=== PATIENT | female | born 1995 | race African-American/Black ===

== ENCOUNTER 2017-01-18 09:02 | Emergency (ER) | payer OTHER ==
[~2017-01-18 09:02] MED LIST: ERYT1OIN6 EACHEYE; HYDR-971 PO; NAPR500T4 PO; PNV1TABL25 PO
[2017-01-18 09:05] VITALS: BP 131/75
[2017-01-18] MEDS ORDERED: AMOX1TAB61 PO (09:41)
--- NOTE | 2017-01-18 09:41 | PHYS DOC ---
Past Medical History Past Medical History: No Pertinent History Past Surgical History: No Surgical History Alcohol Use: None Drug Use: Marijuana Adult General Chief Complaint Chief Complaint: SORE THROAT HPI HPI Patient is a 21 year old female presents to the emergency department stating that she has had a cough congestion with sinus pressure for the last week. She does states that she had recent travel out the [facility] for a . Patient states she has not taken anything ptow-kbw-arhogkc for the discomfort. She does state that she has sinus pressure cough congestion with a sore throat. Denies any fever, chills or any nausea or vomiting. Review of Systems Review of Systems Constitutional: Denies fever or chills [] Eyes: Denies change in visual acuity, redness, or eye pain [] HENT: nasal congestion denies sore throat [] Respiratory: cough denies shortness of breath [] Cardiovascular: No additional information not addressed in HPI [] GI: Denies abdominal pain, nausea, vomiting, bloody stools or diarrhea [] : Denies dysuria or hematuria [] Musculoskeletal: Denies back pain or joint pain [] Integument: Denies rash or skin lesions [] Neurologic: frontal headache, denies focal weakness or sensory changes [] Endocrine: Denies polyuria or polydipsia [] Allergies Allergies Allergies Coded Allergies Type Severity Reaction Last Updated Verified No Known Drug Allergies 12/26/15 No Physical Exam Physical Exam Constitutional: Well developed, well nourished, no acute distress, non-toxic appearance. [] HENT: Normocephalic, atraumatic, bilateral external ears normal, oropharynx moist, no oral exudates, nose normal. Bilateral TM normal, Throat with post nasal drip noted. Slight redness noted, no exudate noted. Patient with frontal sinus tenderness noted. Eyes: PERRLA, EOMI, conjunctiva normal, no discharge. [] Neck: Normal range of motion, no tenderness, supple, no stridor. [] Cardiovascular:Heart rate regular rhythm, no murmur [] Lungs & Thorax: Bilateral breath sounds clear to auscultation [] Skin: Warm, dry, no erythema, no rash. [] Extremities: No tenderness, no cyanosis, no clubbing, ROM intact, no edema. [] Neurologic: Alert and oriented X 3, normal motor function, normal sensory function, no focal deficits noted. [] Psychologic: Affect normal, judgement normal, mood normal. [] EKG EKG [] Radiology/Procedures Radiology/Procedures [] Course & Med Decision Making Course & Med Decision Making Pertinent Labs and Imaging studies reviewed. (See chart for details) Patient was instructed to take sudafed and mucinex as directed by manufacture Medication as prescribed Drink plenty of fluids such as water and gatorade Followup with primary care provider as needed in 5-7 days Return to emergency department as needed for signs and symptoms that become worse. [] Dragon Disclaimer Dragon Disclaimer This electronic medical record was generated, in whole or in part, using a voice recognition dictation system. Departure Departure Impression: Primary Impression: Sinusitis Disposition: HOME, SELF-CARE Condition: STABLE Referrals: JIMBO HARDY Jr, MD (PCP) Patient Instructions: Sinusitis, Pybp-cn-Ahgd Additional Instructions: Activity as tolerated Medication as directed Sudafed and mucinex DM as directed by manufacture over the counter Drink plenty of fluids such as water, gatorade, or propel Followup with primary care provider in 5-7 days Return to emergency department as needed for signs and symptoms that become worse. Scripts Amoxicillin/Potassium Clav (AUGMENTIN 875-125 TABLET) 1 Each Tablet 1 TAB PO BID, #20 TAB Prov: MELI MAYNARD APRN 01/18/17 Problem Qualifiers Primary Impression: Sinusitis Sinusitis location: unspecified location Chronicity: unspecified Qualified Codes: J32.9 - Chronic sinusitis, unspecified MELI MAYNARD APRN Jan 18, 2017 09:41
== END 2017-01-18 10:02 | disposition home or self-care (01) ==
LOC: ER 09:02
DX: J32.9 Chronic sinusitis, unspecified (principal)
CPT/HCPCS: 99283

== ENCOUNTER 2017-01-26 10:45 | Emergency (ER) | payer OTHER ==
[~2017-01-26] VITALS: Ht 157.5 cm; Wt 51.7 kg
[~2017-01-26 10:45] MED LIST changes: +AMOX1TAB61 PO
[2017-01-26 11:00] VITALS: BP 120/58
[2017-01-26] MEDS ORDERED: AMOX600S19 PO (11:08)
--- NOTE | 2017-01-26 11:09 | PHYS DOC ---
Past Medical History Past Medical History: No Pertinent History Past Surgical History: No Surgical History Alcohol Use: None Drug Use: None Adult General Chief Complaint Chief Complaint: SORE THROAT HPI HPI Patient is a 21 year old female who presents complaining of a sinus infection and sore throat. Patient states she was seen in the ED on January 18, 2017 and was diagnosed with a sinusitis. She states she was discharged with Augmentin but she does not like the medication because it is pills She only took one tablet yesterday. She would like her medications switched to liquid. Review of Systems Review of Systems Constitutional: Denies fever or chills [] Eyes: Denies change in visual acuity, redness, or eye pain [] HENT: Sore throat and nasal congestion Respiratory: Denies cough or shortness of breath [] Cardiovascular: No additional information not addressed in HPI [] GI: Denies abdominal pain, nausea, vomiting, bloody stools or diarrhea [] : Denies dysuria or hematuria [] Musculoskeletal: Denies back pain or joint pain [] Integument: Denies rash or skin lesions [] Neurologic: Denies headache, focal weakness or sensory changes [] Allergies Allergies Allergies Coded Allergies Type Severity Reaction Last Updated Verified No Known Drug Allergies 12/26/15 No Physical Exam Physical Exam Constitutional: Well developed, well nourished, no acute distress, non-toxic appearance. [] HENT: Normocephalic, atraumatic, bilateral external ears normal, oropharynx moist, no oral exudates, Small amount of clear rhinorrhea noted in bilateral nasal cavities. Eyes: PERRLA, EOMI, conjunctiva normal, no discharge. [] Neck: Normal range of motion, no tenderness, supple, no stridor. [] Cardiovascular:Heart rate regular rhythm, no murmur [] Lungs & Thorax: Bilateral breath sounds clear to auscultation [] Abdomen: Bowel sounds normal, soft, no tenderness, no masses, no pulsatile masses. [] Skin: Warm, dry, no erythema, no rash. [] Back: No tenderness, no CVA tenderness. [] Extremities: No tenderness, no cyanosis, no clubbing, ROM intact, no edema. [] Neurologic: Alert and oriented X 3, normal motor function, normal sensory function, no focal deficits noted. [] Psychologic: Affect normal, judgement normal, mood normal. [] EKG EKG [] Radiology/Procedures Radiology/Procedures [] Course & Med Decision Making Course & Med Decision Making Pertinent Labs and Imaging studies reviewed. (See chart for details) Patient is in the ED requesting antibiotics to be switched from Augmentin pills to Augmentin liquid. She was given prescription on January 18, 2017 for acute sinusitis. She has only taken one tablet yesterday since the prescription was given to her. I switched her to liquid Augmentin. I recommended she also takes dpgt-cty-ncpiudx decongestant like Claritin-D or Zyrtec-D. Encouraged her to establish care with a PCP. Dragon Disclaimer Dragon Disclaimer This electronic medical record was generated, in whole or in part, using a voice recognition dictation system. Departure Departure Impression: Primary Impression: Acute sinusitis Additional Impression: Acute pharyngitis Disposition: 01 HOME, SELF-CARE Condition: STABLE Referrals: JIMBO HARDY Jr, MD (PCP) follow up with a primary care doctor in one week Patient Instructions: Sinusitis, Viral and Bacterial Pharyngitis Additional Instructions: We switched your prescription from Augmentin pills to liquid. Please ensure you complete this antibiotics. Please take xgps-juk-adjtdue decongestant like Claritin-D or Zyrtec-D. Please push fluids. Please establish care with a primary care doctor and follow-up in one week. Scripts Amoxicillin/Potassium Clav (AUGMENTIN ES-600 SUSPENSION) 600 Mg/5 Ml Susp.recon 12 ML PO BID, #240 ML Prov: MAURY ARAIZA APRN 01/26/17 Problem Qualifiers Primary Impression: Acute sinusitis Sinusitis location: other Recurrence: not specified as recurrent Qualified Codes: J01.80 - Other acute sinusitis Additional Impression: Acute pharyngitis Pharyngitis/tonsillitis etiology: unspecified etiology Qualified Codes: J02.9 - Acute pharyngitis, unspecified MAURY ARAIZA LITIGATION ASSISTANT Jan 26, 2017 11:09
== END 2017-01-26 11:18 | disposition home or self-care (01) ==
LOC: ER 10:45
DX: J01.90 Acute sinusitis, unspecified (principal); J02.9 Acute pharyngitis, unspecified
CPT/HCPCS: 99283

== ENCOUNTER 2017-03-06 19:27 | Emergency (ER) | payer OTHER ==
[~2017-03-06] VITALS: Ht 157.5 cm; Wt 51.7 kg
[~2017-03-06 19:27] MED LIST changes: +AMOX600S19 PO
[2017-03-06 19:44] VITALS: BP 126/62
[2017-03-06] MEDS ORDERED: CETI10TA22 PO (21:17)
[2017-03-06] MEDS ORDERED: TRIA15OI TP (21:17)
--- NOTE | 2017-03-06 21:17 | PHYS DOC ---
Past Medical History Past Medical History: No Pertinent History Past Surgical History: No Surgical History Alcohol Use: None Drug Use: None Adult General Chief Complaint Chief Complaint: ITCHING HPI HPI Patient is a 21 year old female who presents with a pruritic rash that she noted this morning after camping last night. Review of Systems Review of Systems Constitutional: Denies fever or chills [] Musculoskeletal: Denies back pain or joint pain [] Integument: rash Neurologic: Denies headache, focal weakness or sensory changes [] All other systems were reviewed and found to be within normal limits, except as documented in this note. Allergies Allergies Allergies Coded Allergies Type Severity Reaction Last Updated Verified No Known Drug Allergies 12/26/15 No Physical Exam Physical Exam Constitutional: Well developed, well nourished, no acute distress, non-toxic appearance. [] Skin: Warm, dry, small amount of erythematous fine papular rash on bilateral upper extremities.] Back: No tenderness, no CVA tenderness. [] Extremities: No tenderness, no cyanosis, no clubbing, ROM intact, no edema. [] Neurologic: Alert and oriented X 3, normal motor function, normal sensory function, no focal deficits noted. [] Psychologic: Affect normal, judgement normal, mood normal. [] Current Patient Data Vital Signs Vital Signs Date Time Temp Pulse Resp B/P (MAP) Pulse Ox O2 Delivery O2 Flow Rate FiO2 03/06/17 19:44 97.9 71 16 98 Room Air 97.9 Lab Values Laboratory Tests Test 03/06/17 19:49 POC Urine HCG, Qualitative Hcg negative (Negative) EKG EKG [] Radiology/Procedures Radiology/Procedures [] Course & Med Decision Making Course & Med Decision Making Pertinent Labs and Imaging studies reviewed. (See chart for details) Patient has contact dermatitis rash from unknown cause. Discharged with triamcinolone cream and Zyrtec. She requested a test which was negative. Follow-up with her PCP in 1-2 weeks. Dragon Disclaimer Dragon Disclaimer This electronic medical record was generated, in whole or in part, using a voice recognition dictation system. Departure Departure Impression: Primary Impression: Contact dermatitis Disposition: HOME, SELF-CARE Condition: STABLE Referrals: JIMBO HARDY Jr, MD (PCP) follow up with your doctor in one week Patient Instructions: Contact Dermatitis, Lrqd-[id number]-Cqtm Additional Instructions: You seen with contact dermatitis rash from unknown cause. Use the prescribed medicines as ordered. Follow-up with your doctor in 1-2 weeks. Your prepregnancy test was negative. Scripts Cetirizine Hcl (ZYRTEC) 10 Mg Tablet 1 TAB PO DAILY, #30 TAB 2 Refills Prov: MAURY ARAIZA APRN 03/06/17 Triamcinolone Acetonide (TRIAMCINOLONE ACETONIDE 0.1% OINT) 15 Gm Oint...g. 1 LOKI TP BID for WOUND CARE, #1 TUBE Prov: MAURY ARAIZA APRN 03/06/17 Problem Qualifiers Primary Impression: Contact dermatitis Contact dermatitis type: unspecified Contact dermatitis trigger: unspecified trigger Qualified Codes: L25.9 - Unspecified contact dermatitis, unspecified cause MAURY ARAIZA APRN Mar 06, 2017 21:17
== END 2017-03-06 21:21 | disposition home or self-care (01) ==
LOC: ER 19:27
DX: L25.9 Unspecified contact dermatitis, unspecified cause (principal)
CPT/HCPCS: 81025; 99283

== ENCOUNTER 2017-03-25 01:43 | Emergency (ER) | payer OTHER ==
[~2017-03-25] VITALS: Ht 157.5 cm; Wt 52.2 kg
[~2017-03-25 01:43] MED LIST changes: +CETI10TA22 PO; +TRIA15OI TP
--- NOTE | 2017-03-25 01:47 | PHYS DOC ---
Past Medical History Past Medical History: No Pertinent History Past Surgical History: No Surgical History Alcohol Use: None Drug Use: None Adult General Chief Complaint Chief Complaint: VAGINAL BLEEDING HPI HPI Patient is a 21 year old -Japanese female who presents with crampy abdominal pain and vaginal bleeding. She thinks she might be . Her last missed her period was in the vault January. She states that she had sex last night and then today she noticed some bleeding when she used the bathroom. She is also having some crampy pain. She has a fevers chills, dysuria. She states she's O negative and will need RhoGAM if she is . currently. Review of Systems Review of Systems Constitutional: Denies fever or chills [] Eyes: Denies change in visual acuity, redness, or eye pain [] HENT: Denies nasal congestion or sore throat [] Respiratory: Denies cough or shortness of breath [] Cardiovascular: No additional information not addressed in HPI [] GI: Denies abdominal pain, nausea, vomiting, bloody stools or diarrhea [] : Denies dysuria or hematuria [] Musculoskeletal: Denies back pain or joint pain [] Integument: Denies rash or skin lesions [] Neurologic: Denies headache, focal weakness or sensory changes [] Endocrine: Denies polyuria or polydipsia [] All other systems were reviewed and found to be within normal limits, except as documented in this note. Allergies Allergies Allergies Coded Allergies Type Severity Reaction Last Updated Verified No Known Drug Allergies 12/26/15 No Physical Exam Physical Exam Constitutional: Well developed, well nourished, no acute distress, non-toxic appearance. [] HENT: Normocephalic, atraumatic, bilateral external ears normal, oropharynx moist, no oral exudates, nose normal. [] Eyes: PERRLA, EOMI, conjunctiva normal, no discharge. [] Neck: Normal range of motion, no tenderness, supple, no stridor. [] Cardiovascular:Heart rate regular rhythm, no murmur [] Lungs & Thorax: Bilateral breath sounds clear to auscultation [] Abdomen/genital: Bowel sounds normal, soft, no tenderness, no masses, no pulsatile masses. No external genitalia, no tenderness noted, minimal blood noted on speculum exam Skin: Warm, dry, no erythema, no rash. [] Back: No tenderness, no CVA tenderness. [] Extremities: No tenderness, no cyanosis, no clubbing, ROM intact, no edema. [] Neurologic: Alert and oriented X 3, normal motor function, normal sensory function, no focal deficits noted. [] Psychologic: Affect normal, judgement normal, mood normal. [] Current Patient Data Vital Signs Vital Signs Date Time Temp Pulse Resp B/P (MAP) Pulse Ox O2 Delivery O2 Flow Rate FiO2 03/25/17 01:58 97.6 64 16 100 Room Air 97.6 Lab Values Laboratory Tests Test 03/25/17 01:45 03/25/17 02:23 03/25/17 02:28 Urine Collection Type Unknown Urine Color Yellow Urine Clarity Cloudy Urine pH 6.0 Urine Specific [place] 1.020 Urine Protein Negative mg/dL (NEG-TRACE) Urine Glucose (UA) Negative mg/dL (NEG) Urine Ketones (Stick) Negative mg/dL (NEG) Urine Blood Large (NEG) Urine Nitrite Negative (NEG) Urine Bilirubin Negative (NEG) Urine Urobilinogen Dipstick 1.0 mg/dL (0.2 mg/dL) Urine Leukocyte Esterase Negative (NEG) Urine RBC 6-10 /HPF (0-2) Urine WBC 1-4 /HPF (0-4) Urine Squamous Epithelial Cells Many /LPF Urine Bacteria Few /HPF (0-FEW) POC Urine HCG, Qualitative Hcg negative (Negative) Maternal Serum HCG Beta Subunit 1 mIU/mL (0-5) Microbiology 03/25/17 Wet Prep - Final, Complete EKG EKG [] Radiology/Procedures Radiology/Procedures RUN DATE: 03/25/17 PAGE 1 RUN TIME: 0240 [facility] [address] [place] [address] Jason العلي M.D., Animal Killer PATIENT: MARY B[place]HAM ACCT: [id number] LOC: [facility] U : [id number] AGE/SX: 21/F ROOM: REG : 03/25/[address]: SHARON ROSA MD : 1995 BED: DIS : STATUS: DELISA RINCON TLOC: SPEC #: [id number] STEPHAN: 03/25/17 STATUS: COMP REQ #: [id number] RECD: 03/25/[address]: HSARON ROSA MD SOURCE: VAGINAL ENTR: 03/25/[address]: JIMBO GARCIA Jr, MD SPDESC: ORDERED: WET PREP COMMENTS: Has specimen been collected/obtained? Y Procedure Result WET PREP Final YEAST NONE SEEN TRICHOMONAS NONE SEEN CLUE CELLS NONE SEEN SQUAMOUS EPS OCCASIONAL END OF REPORT Impressions: Vaginal bleeding Course & Med Decision Making Course & Med Decision Making Pertinent Labs and Imaging studies reviewed. (See chart for details) G is negative with a beta Quant of 1. She is not . She is being discharged home, she has a follow-up appointment in the morning with Dr. Garcia. Return precautions given. Instructed use Dragon Disclaimer Dragon Disclaimer This electronic medical record was generated, in whole or in part, using a voice recognition dictation system. Departure Departure Impression: Primary Impression: Vaginal bleeding Disposition: HOME, SELF-CARE Condition: STABLE Referrals: JIMBO GARCIA Jr, MD (PCP) Patient Instructions: Dysmenorrhea, Ayyx-ak-Dyqh Additional Instructions: You were seen tonight for vaginal bleeding and cramps. You're not . Your being discharged home. You can use Advil as needed for menstrual cramps. You follow-up appointment in the morning with Dr. Garcia. Return back to ER for severe pain, lightheadedness dizziness or other concerns. SHARON ROSA MD Mar 25, 2017 01:47
[2017-03-25 01:58] VITALS: BP 124/73
[2017-03-25 02:35] LABS: BILIRUBIN,URINE NEGATIVE (NEG); GLUCOSE,URINE NEGATIVE (NEG); NITRITE,URINE NEGATIVE (NEG); PROTEIN,URINE NEGATIVE (NEG-TRACE)
[2017-03-25 02:57] LABS: BACTERIA,URINE FEW /HPF (0-FEW); SQUAMOUS EPITHELIAL CELL,UR MANY /LPF
== END 2017-03-25 03:35 | disposition home or self-care (01) ==
LOC: ER 01:43
DX: N93.9 Abnormal uterine and vaginal bleeding, unspecified (principal); R10.9 Unspecified abdominal pain; R50.9 Fever, unspecified; R30.0 Dysuria
CPT/HCPCS: 81001; 81025; 84702; 87491; 87591; 99284; Q0111

== ENCOUNTER 2017-06-02 17:00 | Emergency (ER) | payer OTHER | END 2017-06-02 18:03 | disposition left against medical advice (07) | LOC: ER 17:00 | DX: N93.9 Abnormal uterine and vaginal bleeding, unspecified (principal); Z53.21 Procedure and treatment not carried out due to patient leaving prior to being seen by health care provider ==

== ENCOUNTER 2017-11-11 15:45 | Emergency (ER) | payer OTHER ==
[2017-11-11] MEDS: ONDANSETRON ODT 4 MG TAB.RAPDIS. PO (16:33)
[2017-11-11 16:35] LABS: URINE HCG POC HCG NEGATIVE (Negative)
[2017-11-11 16:37] LABS: BILIRUBIN,URINE NEGATIVE (NEG); CLARITY,URINE CLOUDY; COLOR,URINE YELLOW; GLUCOSE,URINE NEGATIVE (NEG); NITRITE,URINE NEGATIVE (NEG); PH,URINE 6.5; PROTEIN,URINE NEGATIVE (NEG-TRACE); UROBILINOGEN,URINE 0.2 mg/dL (0.2 mg/dL)
[2017-11-11 16:46] LABS: BACTERIA,URINE FEW /HPF (0-FEW); RBC,URINE OCC /HPF (0-2)
[2017-11-11 16:47] LABS: SQUAMOUS EPITHELIAL CELL,UR MOD /LPF; TRICHOMONAS,URINE PRESENT
[2017-11-11] MEDS: AZITHROMYCIN 250 MG TABLET. PO (16:50)
[2017-11-11] MEDS: cefTRIAXone IM 250 MG VIAL IM (16:51)
[2017-11-12 15:49] LABS: CHLAMYDIA PROBE Negative (Negative); GC PROBE Negative (Negative)
== END 2017-11-11 17:18 | disposition home or self-care (01) ==
LOC: ER 15:45
DX: N76.0 Acute vaginitis (principal); B96.89 Other specified bacterial agents as the cause of diseases classified elsewhere; A64 Unspecified sexually transmitted disease; A59.01 Trichomonal vulvovaginitis
CPT/HCPCS: 81001; 81025; 87086; 87491; 87591; 96372; 99284; J0696; Q0111; Q0144; Q0162

== ENCOUNTER → 2017-12-31 | Day surgery (SDC) | payer OTHER ==
[~2017-12-31] VITALS: Ht 157.5 cm; Wt 53.5 kg
[~2017-12-31] MED LIST changes: +DEXAMETHASONE SOD PHOS 20 MG/5 ML VIAL. ONE; +FERRIC SUBSULFATE 8 ML SOL.W.APPL TP ONE; +HYDROmorphone 2 MG/ML VIAL IV PRN; +IV RINGERS,LACTATED 1000ML 1,000 ML IV SCH; +LIDOCAINE 1% PF 2 ML VIAL. ID PRN; +LIDOCAINE 1%/EPI 1:100,000 20 ML VIAL. ONE; +METR500T PO; +MIDAZOLAM HCL/PF 2 MG/2 ML VIAL. ONE; +MORPHINE SULFATE 2 MG/ML VIAL. IV PRN; +NAPR-514 PO; -NAPR500T4 PO; +ONDANSETRON PF 4 MG/2 ML VIAL. IV PRN; +ONDANSETRON PF 4 MG/2 ML VIAL. ONE; +OXYC-323 PO; +PROCHLORPERAZINE 10 MG/2 ML VIAL. IV PRN; +PROPOFOL 20 ML IV ONE; +SEVOFLURANE 31 TO 60 MINUTES. IH ONE; +fentaNYL PF VIAL 100 MCG/2 ML VIAL IV PRN; +fentaNYL PF VIAL 100 MCG/2 ML VIAL ONE
[2017-12-31 08:54] LABS: U PREG PATIENT NEGATIVE (NEG)
--- NOTE | 2017-12-31 11:38 | PDOC ---
BRIEF OPERATIVE NOTE Date: Dec 31, 2017 Pre-Op Diagnosis cervical dysplasia Post-Op Diagnosis SAme Procedure Performed Cervical Cone Bx Surgeon Dr. Garcia Anesthesia Type: General Blood Loss 10 ml Specimens Obtained cervical cone bx Findings cervical dysplasia Complications none Operative Note see dictation JIMBO GARCIA Jr, MD Dec 31, 2017 11:38
--- NOTE | 2017-12-31 11:39 | DISCH ---
DISCHARGE INSTRUCTIONS Condition on Discharge Condition on Discharge: Stable Activity After Discharge Activity Instructions for Disc: Activity as tolerated Lifting Instructions after Dis: No heavy lifting Driving Instructions after Dis: Do not drive today Diet after Discharge Diet after Discharge: Regular Contacting the DRKelvin after DC Call your doctor for: Concerns you may have Follow-Up Follow up with: Dr. Martinez in 2 wks. JIMBO MARTINEZ Jr, MD Dec 31, 2017 11:39
--- NOTE | 2017-12-31 12:00 | OP ---
DATE OF SURGERY: PREOPERATIVE DIAGNOSIS: Cervical dysplasia. POSTOPERATIVE DIAGNOSIS: Cervical dysplasia. PROCEDURE: Cervical cone biopsy. SURGEON: Jimbo Garcia MD ANESTHESIA: GETA. ESTIMATED BLOOD LOSS: Less than 10 mL. COMPLICATIONS: None. FINDINGS: Cervical dysplasia. SUMMARY: A 22-year-old with moderate cervical dysplasia from colposcopic biopsy, requiring cervical cone biopsy. The patient was counseled on the risks, benefits and expectations and voiced clear understanding to proceed. DESCRIPTION OF PROCEDURE: The patient was taken to surgery suite and placed in dorsal lithotomy position. She was prepped with Betadine solution and draped in sterile fashion. After adequate anesthesia, weighted speculum and curved Gray placed vaginally. The anterior lip of the cervix grasped with single-tooth tenaculum. 1% lidocaine with epinephrine was injected circumferentially at 3 o'clock and 9 o'clock, 2-0 Vicryl sutures were placed in a jinnda-ov-xiybm manner to help stabilize the cervix. Cervical cone biopsy was then performed with 45-degree angle scapula, removing a portion of the anterior and posterior lip of the cervix. The remaining portion of the cervix was cauterized with Bovie cautery and Monsel solution was also applied for hemostasis purposes. Single tooth tenaculum, weighted speculum and curved Gray removed. The patient tolerated the procedure well and was taken to recovery room in stable condition. Sponge and needle count correct x 3. JIMBO GARCIA MD DR: SOSA/andrew JOB#: [id number] / [id number]
[2017-12-31 12:55] VITALS: BP 108/74
--- NOTE | 2018-01-06 16:08 | PATHOLOGY ---
[facility] Accession Number: [id number] . 01 Material submitted: . CERVICAL CONE BIOPSY . 01 Clinical history: . Cervical dysplasia . 02 Diagnosis: Cervix, cone biopsy: - Mild dysplasia (ZHANNA-I), focal, borderline. - Chronic cervicitis. - Squamous metaplasia. - Transformation zone present. . (Please see comment) [facility] [place]/01/06/2018 . 02 Comment: No evidence of a high-grade squamous intraepithelial lesion is seen with the p16 immunoperoxidase stain on blocks A4, A6, and A7. ([facility]:[place]; 01/06/2018) . 02 Electronically signed: . Yobani Fair MD, Pathologist NPI- [id number] . 01 Gross description: . The specimen is received in formalin, labeled "Ash, Saharaburta and cervical cone biopsy suture at the 12:00", is an oriented cervical cone 2.5 x 1.2 x 1.7 cm with a suture designating 12:00. The 1.2 cm slitlike external os is a surrounded by a white-ramirez ectocervix. The ectocervix is inked blue and endocervix black. The specimen is divided into 4 quadrants and each quadrant serially sectioned. The specimen is entirely submitted as follows: A1-A2. 12:00 to 3:00 A3-A4. 3:00 to 6:00 A5-A6. 6:00 to 9:00 A7. 9:00 to 12:00 ([facility]; 12/31/2017) SHS/SHS . 02 Pathologist provided ICD-10: N87.0, N72 . 02 CPT . 334253, B70166 Specimen Comment: A courtesy copy of this report has been sent to Specimen Comment: [phone]. Specimen Comment: Report sent to [facility]formed at: 01 [facility] [address] [id number] MD Wilton Navas MD Phone: [phone] Performed at: 02 [facility] [address] [id number] MD Andre Dwyer MD Phone: [phone]
== END | disposition home or self-care (01) ==
LOC: SURG 08:05
PROVIDERS: ATTEND Obstetrics & Gynecology
DX: N87.0 Mild cervical dysplasia (principal); N72 Inflammatory disease of cervix uteri; Z83.3 Family history of diabetes mellitus; Z87.891 Personal history of nicotine dependence
CPT/HCPCS: 57500; 81025; 88307; 88342; A7015; J0690; J1100; J2250; J2405; J2704; J3010; J3490

== ENCOUNTER 2018-04-02 14:50 | Emergency (ER) | payer OTHER ==
[~2018-04-02] VITALS: Ht 157.5 cm; Wt 53.5 kg
[~2018-04-02 14:50] MED LIST changes: -DEXAMETHASONE SOD PHOS 20 MG/5 ML VIAL. ONE; -FERRIC SUBSULFATE 8 ML SOL.W.APPL TP ONE; +HYDR-3164 PO; -HYDR-971 PO; -HYDROmorphone 2 MG/ML VIAL IV PRN; -IV RINGERS,LACTATED 1000ML 1,000 ML IV SCH; -LIDOCAINE 1% PF 2 ML VIAL. ID PRN; -LIDOCAINE 1%/EPI 1:100,000 20 ML VIAL. ONE; -MIDAZOLAM HCL/PF 2 MG/2 ML VIAL. ONE; -MORPHINE SULFATE 2 MG/ML VIAL. IV PRN; -ONDANSETRON PF 4 MG/2 ML VIAL. IV PRN; -ONDANSETRON PF 4 MG/2 ML VIAL. ONE; -OXYC-323 PO; +OXYC1TAB15 PO; -PROCHLORPERAZINE 10 MG/2 ML VIAL. IV PRN; -PROPOFOL 20 ML IV ONE; -SEVOFLURANE 31 TO 60 MINUTES. IH ONE; -fentaNYL PF VIAL 100 MCG/2 ML VIAL IV PRN; -fentaNYL PF VIAL 100 MCG/2 ML VIAL ONE
[2018-04-02 15:28] VITALS: BP 108/74
[2018-04-02] MEDS ORDERED: cefTRIAXone IM 250 MG VIAL IM ONE (15:30)
[2018-04-02] MEDS ORDERED: AZITHROMYCIN 250 MG TABLET. PO ONE (15:30)
[2018-04-02] MEDS ORDERED: metroNIDAZOLE 500 MG TABLET PO ONE (15:30)
--- NOTE | 2018-04-02 16:15 | PHYS DOC ---
Past Medical History Past Medical History: STD Additional Past Medical Histor: high risk for HPV Past Surgical History: No Surgical History Alcohol Use: Occasionally Drug Use: None Adult General Chief Complaint Chief Complaint: SEXUALLY TRANSMITTED DISEASE HPI HPI Patient is a 22 year old female with history of STDs who presents today concerned she could have another STD, UTI or yeast infection. 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 She states she has increased risk of STDs. She states she's had vaginal discharge, itching and irritation for a couple days. She states she's also had unprotected sex with different men. She is requesting treatment. Denies any chance she is . Review of Systems Review of Systems Constitutional: Denies fever or chills [] GI: Denies abdominal pain, nausea, vomiting, bloody stools or diarrhea [] : Concern about STDs,dysuria and vag discharge, denies hematuria [] Musculoskeletal: Denies back pain or joint pain [] Integument: Denies rash or skin lesions [] Neurologic: Denies headache, focal weakness or sensory changes [] All other systems were reviewed and found to be within normal limits, except as documented in this note. Current Medications Current Medications Current Medications Medications (Trade) Dose Ordered Sig/Marisol Start Time Stop Time Status Last Admin Dose Admin Azithromycin (Zithromax) 1,000 mg 1X ONCE 04/02/18 15:30 04/02/18 15:38 DC 04/02/18 15:47 1,000 MG Ceftriaxone Sodium (Rocephin Im) 250 mg 1X ONCE 04/02/18 15:30 04/02/18 15:38 DC 04/02/18 15:47 250 MG Metronidazole (Flagyl) 2,000 mg 1X ONCE 04/02/18 15:30 04/02/18 15:38 DC 04/02/18 15:48 2,000 MG Ondansetron HCl (Zofran Odt) 4 mg 1X ONCE 04/02/18 16:30 04/02/18 16:31 04/02/18 16:26 4 MG Allergies Allergies Allergies Coded Allergies Type Severity Reaction Last Updated Verified No Known Drug Allergies 12/26/15 No Physical Exam Physical Exam Constitutional: Well developed, well nourished, no acute distress, non-toxic appearance. [] Abdomen: Bowel sounds normal, soft, no tenderness, no masses, no pulsatile masses. [] Pelvic exam External pelvic appears normal, cervix not visualized, no CMT, no adnexal tenderness, small amount of white discharge in the vaginal vault. Skin: Warm, dry, no erythema, no rash. [] Back: No tenderness, no CVA tenderness. [] Extremities: No tenderness, no cyanosis, no clubbing, ROM intact, no edema. [] Neurologic: Alert and oriented X 3, normal motor function, normal sensory function, no focal deficits noted. [] Psychologic: Affect normal, judgement normal, mood normal. [] Current Patient Data Vital Signs Vital Signs Date Time Temp Pulse Resp B/P (MAP) Pulse Ox O2 Delivery O2 Flow Rate FiO2 04/02/18 15:28 98.6 72 16 108/74 (85) 99 Room Air 98.6 Lab Values Laboratory Tests Test 04/02/18 16:07 04/02/18 16:11 Urine Collection Type Unknown Urine Color Yellow Urine Clarity Cloudy Urine pH 5.5 Urine Specific [place] 1.020 Urine Protein Negative mg/dL (NEG-TRACE) Urine Glucose (UA) Negative mg/dL (NEG) Urine Ketones (Stick) Negative mg/dL (NEG) Urine Blood Negative (NEG) Urine Nitrite Negative (NEG) Urine Bilirubin Negative (NEG) Urine Urobilinogen Dipstick 0.2 mg/dL (0.2 mg/dL) Urine Leukocyte Esterase Large (NEG) Urine RBC 3-5 /HPF (0-2) Urine WBC >40 /HPF (0-4) Urine Squamous Epithelial Cells Mod /LPF Urine Bacteria Few /HPF (0-FEW) Urine Mucus Marked /LPF Urine Trichomonas Present POC Urine HCG, Qualitative Hcg negative (Negative) Microbiology 04/02/18 Wet Prep - Final, Complete EKG EKG [] Radiology/Procedures Radiology/Procedures [] Course & Med Decision Making Course & Med Decision Making Pertinent Labs and Imaging studies reviewed. 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 Patient was given Rocephin Flagyl and azithromycin. Wet prep positive for Trichomonas and BV. Urine analysis is positive for UTI. Patient vomited after being given her medicines in the ED. Patient will be discharged with Flagyl, azithromycin, doxycycline and Zofran. Highly emphasized to this patient the importance of using protection especially with her high risk profession. Follow-up with her PASSENGER SERVICE REPRESENTATIVE or the health department in 1-2 weeks as needed. Dragon Disclaimer Dragon Disclaimer This electronic medical record was generated, in whole or in part, using a voice recognition dictation system. Departure Departure Impression: Primary Impression: BV (bacterial vaginosis) Additional Impressions: Trichomonas infection Urinary tract infection Disposition: 01 HOME, SELF-CARE Condition: STABLE Referrals: NO PCP (PCP) JIMBO HARDY Jr, MD follow up in 1 week Patient Instructions: Bacterial Vaginosis, [id number], Trichomoniasis, Urinary Tract Infection Additional Instructions: You were evaluated in the emergency room, you were positive for urinary tract infection, Trichomonas and bacterial vaginosis. Please use protection at all times. Take the prescribed medications as ordered. Follow-up with your PASSENGER SERVICE REPRESENTATIVE on the health department in 1-2 weeks as needed. Scripts Ondansetron Hcl (ZOFRAN) 4 Mg Tablet 1 TAB PO Q6HRS, #20 TAB Prov: MAURY ARAIZA APRN 18 Doxycycline Hyclate (DOXYCYCLINE HYCLATE) 100 Mg Tablet 1 TAB PO BID, #14 TAB Prov: MAURY ARAIZA APRN 04/02/18 Azithromycin (ZITHROMAX) 500 Mg Tablet 2 TAB PO ONCE, #2 TAB Prov: MAURY ARIAZA APRN 04/02/18 Metronidazole (FLAGYL) 500 Mg Tablet 1 TAB PO BID, #14 TAB Prov: MAURY ARAIZA APRN 04/02/18 Problem Qualifiers Additional Impressions: Urinary tract infection Urinary tract infection type: site unspecified Hematuria presence: without hematuria Qualified Codes: N39.0 - Urinary tract infection, site not specified MAURY ARAIZA APRN Apr 02, 2018 16:15
[2018-04-02 16:17] LABS: BILIRUBIN,URINE NEGATIVE (NEG); CLARITY,URINE CLOUDY; COLOR,URINE YELLOW; NITRITE,URINE NEGATIVE (NEG); PH,URINE 5.5; PROTEIN,URINE NEGATIVE (NEG-TRACE); UROBILINOGEN,URINE 0.2 mg/dL (0.2 mg/dL)
[2018-04-02 16:23] LABS: SQUAMOUS EPITHELIAL CELL,UR MOD /LPF
[2018-04-02 16:24] LABS: WBC,URINE >40 /HPF (0-4)
[2018-04-02 16:25] LABS: BACTERIA,URINE FEW /HPF (0-FEW); TRICHOMONAS,URINE PRESENT
[2018-04-02] MEDS ORDERED: ONDANSETRON ODT 4 MG TAB.RAPDIS. PO ONE (16:30)
[2018-04-02] MEDS ORDERED: AZIT500T PO (16:35)
[2018-04-02] MEDS ORDERED: METR500T PO (16:35)
[2018-04-02] MEDS ORDERED: ONDA4TAB7 PO (16:35)
[2018-04-02] MEDS ORDERED: DOXY100T PO (16:35)
[2018-04-05 13:22] LABS: GC PROBE Negative (Negative)
== END 2018-04-02 16:45 | disposition home or self-care (01) ==
LOC: ER 14:50
DX: N39.0 Urinary tract infection, site not specified (principal); N76.0 Acute vaginitis; B96.89 Other specified bacterial agents as the cause of diseases classified elsewhere; A59.9 Trichomoniasis, unspecified
CPT/HCPCS: 81001; 81025; 87086; 87491; 87591; 96372; 99284; J0696; Q0111; Q0144; Q0162

== ENCOUNTER 2018-06-28 15:24 | Emergency (ER) | payer OTHER ==
[~2018-06-28] VITALS: Ht 157.5 cm; Wt 58.1 kg
[~2018-06-28 15:24] MED LIST changes: +AZIT500T PO; +DOXY100T PO; +ONDA4TAB7 PO
[2018-06-28 16:45] VITALS: BP 135/72
[2018-06-28 17:21] LABS: BILIRUBIN,URINE NEGATIVE (NEG); CLARITY,URINE CLEAR; COLOR,URINE YELLOW; NITRITE,URINE NEGATIVE (NEG); PROTEIN,URINE NEGATIVE (NEG-TRACE)
[2018-06-28 17:34] LABS: AMORPHOUS SEDIMENT,UR PRESENT /HPF; BACTERIA,URINE MODERATE /HPF (0-FEW); RBC,URINE 0 /HPF (0-2); SQUAMOUS EPITHELIAL CELL,UR MOD /LPF; WBC,URINE >40 /HPF (0-4)
[2018-06-28 17:59] LABS: BASO % 0 % (0-3); EOS # 0.1 x10^3/uL (0.0-0.7); EOS % 1 % (0-3); HEMATOCRIT 37.2 % (36.0-47.0); HEMOGLOBIN 12.4 g/dL (12.0-15.5); LYMPH # 1.5 x10^3/uL (1.0-4.8); LYMPH % 17 % (24-48); MEAN CORPUSCULAR HEMOGLOBIN 29 pg (25-35); MEAN CORPUSCULAR HGB CONC 33 g/dL (31-37); MEAN CORPUSCULAR VOLUME 86 fL (79-100); MONO # 0.5 x10^3/uL (0.0-1.1); MONO % 5 % (0-9); NEUT # 6.9 x10^3uL (1.8-7.7); NEUT % 77 % (31-73); PLATELET COUNT 247 x10^3/uL (140-400); RED BLOOD COUNT 4.31 x10^6/uL (3.50-5.40); RED CELL DISTRIBUTION WIDTH 13.4 % (11.5-14.5)
[2018-06-28 18:07] LABS: CREATININE 0.7 mg/dL (0.6-1.0); GFR 127.8; POTASSIUM 3.8 mmol/L (3.5-5.1)
[2018-06-28 18:14] LABS: ALBUMIN 3.6 g/dL (3.4-5.0); TOTAL BILIRUBIN 0.6 mg/dL (0.2-1.0); TOTAL PROTEIN 7.2 g/dL (6.4-8.2)
[2018-06-28] MEDS ORDERED: CEPH500C PO (19:11)
--- NOTE | 2018-06-28 19:12 | PHYS DOC ---
Past Medical History Past Medical History: STD Additional Past Medical Histor: high risk for HPV, BENIGN CERVICAL DYSPLASIA Past Surgical History: No Surgical History Alcohol Use: Occasionally Drug Use: None Adult General Chief Complaint Chief Complaint: ABDOMINAL PAIN HPI HPI Patient is a 22 year old AA female who presents to the emergency department with complaints of a foul-smelling vaginal discharge today. She also reports intermittent low abdominal pain. She denies any nausea, vomiting, diarrhea, fever, back pain, sore throat, cough, shortness of breath. Patient states that she has had some increased urinary frequency, and dysuria today. She currently denies any pain, and reports that the pain she has comes and goes. Review of Systems Review of Systems Constitutional: Denies fever or chills [] Eyes: Denies changes HENT: Denies nasal congestion or sore throat [] Respiratory: Denies cough or shortness of breath [] Cardiovascular: No additional information not addressed in HPI [] GI: Denies nausea, vomiting, or diarrhea ; see history of present illness[] : See history of present illness Musculoskeletal: Denies back pain or joint pain [] Integument: Denies rash or skin lesions [] Neurologic: Denies headache, focal weakness or sensory changes [] Allergies Allergies Allergies Coded Allergies Type Severity Reaction Last Updated Verified No Known Drug Allergies 12/26/15 No Physical Exam Physical Exam Constitutional: Well developed, well nourished, no acute distress, non-toxic appearance. [] HENT: Normocephalic, atraumatic, bilateral external ears normal, nose normal. [] Eyes: conjunctiva normal, no discharge. 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 [] Back: no CVA tenderness. [] Extremities: No cyanosis, ROM intact, no edema. [] Neurologic: Alert and oriented X 3, no focal deficits noted. [] Psychologic: Affect normal, judgement normal, mood normal. [] Current Patient Data Vital Signs Vital Signs Date Time Temp Pulse Resp B/P (MAP) Pulse Ox O2 Delivery O2 Flow Rate FiO2 06/28/18 16:45 98.2 80 16 135/72 (93) 100 Room Air 98.2 Lab Values Laboratory Tests Test 06/28/18 16:30 06/28/18 16:39 06/28/18 16:48 Urine Collection Type Void Urine Color Yellow Urine Clarity Clear Urine pH 6.0 Urine Specific [place] 1.020 Urine Protein Negative mg/dL (NEG-TRACE) Urine Glucose (UA) Negative mg/dL (NEG) Urine Ketones (Stick) Negative mg/dL (NEG) Urine Blood Negative (NEG) Urine Nitrite Negative (NEG) Urine Bilirubin Negative (NEG) Urine Urobilinogen Dipstick 1.0 mg/dL (0.2 mg/dL) Urine Leukocyte Esterase Negative (NEG) Urine RBC 0 /HPF (0-2) Urine WBC >40 /HPF (0-4) Urine Squamous Epithelial Cells Mod /LPF Urine Amorphous Sediment Present /HPF Urine Bacteria Moderate /HPF (0-FEW) Urine Mucus Mod /LPF POC Urine HCG, Qualitative Hcg negative (Negative) White Blood Count 9.0 x10^3/uL (4.0-11.0) Red Blood Count 4.31 x10^6/uL (3.50-5.40) Hemoglobin 12.4 g/dL (12.0-15.5) Hematocrit 37.2 % (36.0-47.0) Mean Corpuscular Volume 86 fL (79-100) Mean Corpuscular Hemoglobin 29 pg (25-35) Mean Corpuscular Hemoglobin Concent 33 g/dL (31-37) Red Cell Distribution Width 13.4 % (11.5-14.5) Platelet Count 247 x10^3/uL (140-400) Neutrophils (%) (Auto) 77 % (31-73) H Lymphocytes (%) (Auto) 17 % (24-48) L Monocytes (%) (Auto) 5 % (0-9) Eosinophils (%) (Auto) 1 % (0-3) Basophils (%) (Auto) 0 % (0-3) Neutrophils # (Auto) 6.9 x10^3uL (1.8-7.7) Lymphocytes # (Auto) 1.5 x10^3/uL (1.0-4.8) Monocytes # (Auto) 0.5 x10^3/uL (0.0-1.1) Eosinophils # (Auto) 0.1 x10^3/uL (0.0-0.7) Basophils # (Auto) 0.0 x10^3/uL (0.0-0.2) Sodium Level 140 mmol/L (136-145) Potassium Level 3.8 mmol/L (3.5-5.1) Chloride Level 104 mmol/L (98-107) Carbon Dioxide Level 26 mmol/L (21-32) Anion Gap 10 (6-14) Blood Urea Nitrogen 15 mg/dL (7-20) Creatinine 0.7 mg/dL (0.6-1.0) Estimated GFR (Cockcroft-Gault) 127.8 BUN/Creatinine Ratio 21 (6-20) H Glucose Level 103 mg/dL (70-99) H Calcium Level 9.0 mg/dL (8.5-10.1) Total Bilirubin 0.6 mg/dL (0.2-1.0) Aspartate Amino Transferase (AST) 17 U/L (15-37) Alanine Aminotransferase (ALT) 19 U/L (14-59) Alkaline Phosphatase 79 U/L (46-116) Total Protein 7.2 g/dL (6.4-8.2) Albumin 3.6 g/dL (3.4-5.0) Albumin/Globulin Ratio 1.0 (1.0-1.7) Laboratory Tests 06/28/18 16:48 Laboratory Tests 06/28/18 16:48 Microbiology 06/28/18 Wet Prep - Final, Complete EKG EKG [] Radiology/Procedures Radiology/Procedures [] Course & Med Decision Making Course & Med Decision Making Pertinent Labs and Imaging studies reviewed. (See chart for details) Patient was treated prophylactically with 250 mg of IM Rocephin, and 1 g of PO Zithromax. Patient was instructed to avoid having intercourse until the results of gonorrhea and chlamydia testing were available, patient was notified that these results would not be available for 48 hours. If one or both of these tests is positive, patient needs to refrain from intercourse for approximately 2 weeks following the treatment of any current partners. Prescription for Keflex was written. Patient was advised to increase clear fluids and avoid irritants. Patient verbalized an understanding of home care, medications, follow-up, and return to ED instructions and was in agreement with the plan of care. [] Dragon Disclaimer Dragon Disclaimer This electronic medical record was generated, in whole or in part, using a voice recognition dictation system. Departure Departure Impression: Primary Impression: Urinary tract infection Additional Impressions: Encounter for assessment of sexually transmitted disease exposure Contact with and (suspected) exposure to infections with a predominantly sexual mode of transmission Disposition: HOME, SELF-CARE Condition: STABLE Referrals: UNKNOWN PCP NAME (PCP) Patient Instructions: Sexually Transmitted Disease, [id number], Urinary Tract Infection, [id number] Additional Instructions: Fill prescription(s) and use as directed. Avoid bladder irritants such as caffeine, carbonation, and spicy foods. Increase clear fluids. Follow up with your primary care doctor if symptoms persist, return to the ER if symptoms worsen. Your treated today for suspected sexually transmitted disease, the result of her testing will not be available for 48 hours. He needs to refrain from having intercourse until you know the results of these tests. If one or both these test is positive, he needs to notify any current sex partners so that they can go be treated for the infection. You need to avoid having intercourse for at least 7 days after any partners have been treated. Scripts Cephalexin (CEPHALEXIN) 500 Mg Capsule 1 CAP PO BID for 7 Days, #14 CAP 0 Refills Prov: KOURTNEY HAN APRN 06/28/18 Problem Qualifiers Primary Impression: Urinary tract infection Urinary tract infection type: site unspecified Hematuria presence: without hematuria Qualified Codes: N39.0 - Urinary tract infection, site not specified KOURTNEY HAN APRN Jun 28, 2018 19:12
[2018-06-28] MEDS ORDERED: cefTRIAXone IM 250 MG VIAL IM ONE (19:15)
[2018-06-28] MEDS ORDERED: AZITHROMYCIN 250 MG TABLET. PO ONE (19:15)
[2018-06-30 20:11] LABS: GC PROBE Negative (Negative)
== END 2018-06-28 19:41 | disposition home or self-care (01) ==
LOC: ER 15:24
DX: N39.0 Urinary tract infection, site not specified (principal); Z20.2 Contact with and (suspected) exposure to infections with a predominantly sexual mode of transmission
CPT/HCPCS: 36415; 80053; 81001; 81025; 85025; 87086; 87491; 87591; 96372; 99283; J0696; Q0111; Q0144

== ENCOUNTER 2019-01-07 15:24 | Emergency (ER) | payer MEDICAID, OTHER ==
[~2019-01-07] VITALS: Ht 157.5 cm; Wt 58.1 kg
[~2019-01-07 15:24] MED LIST changes: +CEPH500C PO
[2019-01-07 15:58] VITALS: BP 135/58
--- NOTE | 2019-01-07 15:58 | PHYS DOC ---
Past Medical History Past Medical History: STD Additional Past Medical Histor: high risk for HPV, BENIGN CERVICAL DYSPLASIA (MELI WILLIAM APRN) Past Surgical History: No Surgical History (MELI WLILIAM APRN) Alcohol Use: Occasionally Drug Use: None (MELI WILLIAM APRN) Adult General Chief Complaint Chief Complaint: VAGINAL PROBLEM HPI HPI Patient is a 23 year old female who presents with states for the last week she has noticed a contreras white discharge in her underwear and a foul odor. Patient denies any pain. Patient states she has low mid abdominal pain that comes and goes over the last week. (MELI WILLIAM APRN) Review of Systems Review of Systems Constitutional: Denies fever or chills [] GI: Denies abdominal pain, nausea, vomiting, bloody stools or diarrhea [] : White vaginal discharge and vaginal itching. Denies dysuria or hematuria [] All other systems were reviewed and found to be within normal limits, except as documented in this note. (MELI WILLIAM APRN) Allergies Allergies Allergies Coded Allergies Type Severity Reaction Last Updated Verified No Known Drug Allergies 12/26/15 No (DOROTHY PRETTY MD) Physical Exam Physical Exam Constitutional: Well developed, well nourished, no acute distress, non-toxic appearance. [] Abdomen: Bowel sounds normal, soft, no tenderness, no masses, no pulsatile masses. [] Skin: Warm, dry, no erythema, no rash. [] Back: No tenderness, no CVA tenderness. [] Neurologic: Alert and oriented X 3, normal motor function, normal sensory function, no focal deficits noted. [] Psychologic: Affect normal, judgement normal, mood normal. [] Normal Physical Exam (MELI WILLIAM APRN) Current Patient Data Vital Signs Vital Signs Date Time Temp Pulse Resp B/P (MAP) Pulse Ox O2 Delivery O2 Flow Rate FiO2 01/07/19 15:58 98.7 80 14 135/58 (83) 96 98.7 (DOROTHY PRETTY MD) Lab Values Laboratory Tests Test 01/07/19 15:58 01/07/19 16:02 Urine Collection Type Unknown Urine Color Yellow Urine Clarity Clear Urine pH 6.0 Urine Specific [place] 1.020 Urine Protein Negative mg/dL (NEG-TRACE) Urine Glucose (UA) Negative mg/dL (NEG) Urine Ketones (Stick) Negative mg/dL (NEG) Urine Blood Negative (NEG) Urine Nitrite Negative (NEG) Urine Bilirubin Negative (NEG) Urine Urobilinogen Dipstick 1.0 mg/dL (0.2 mg/dL) Urine Leukocyte Esterase Small (NEG) Urine RBC 0 /HPF (0-2) Urine WBC 5-10 /HPF (0-4) Urine Squamous Epithelial Cells Many /LPF Urine Bacteria Many /HPF (0-FEW) Urine Mucus Mod /LPF Urine Trichomonas Present POC Urine HCG, Qualitative Hcg negative (Negative) Microbiology 01/07/19 Wet Prep - Final, Complete (DOROTHY PRETTY MD) Lab Values Laboratory Tests Test 01/07/19 15:58 01/07/19 16:02 Urine Collection Type Unknown Urine Color Yellow Urine Clarity Clear Urine pH 6.0 Urine Specific [place] 1.020 Urine Protein Negative mg/dL (NEG-TRACE) Urine Glucose (UA) Negative mg/dL (NEG) Urine Ketones (Stick) Negative mg/dL (NEG) Urine Blood Negative (NEG) Urine Nitrite Negative (NEG) Urine Bilirubin Negative (NEG) Urine Urobilinogen Dipstick 1.0 mg/dL (0.2 mg/dL) Urine Leukocyte Esterase Small (NEG) Urine RBC 0 /HPF (0-2) Urine WBC 5-10 /HPF (0-4) Urine Squamous Epithelial Cells Many /LPF Urine Bacteria Many /HPF (0-FEW) Urine Mucus Mod /LPF Urine Trichomonas Present POC Urine HCG, Qualitative Hcg negative (Negative) Microbiology 01/07/19 Wet Prep - Final, Complete (MELI WILLIAM APRN) EKG EKG [] (MELI WILLIAM APRN) Radiology/Procedures Radiology/Procedures [] (MELI WILLIAM APRN) Course & Med Decision Making Course & Med Decision Making Patient is a 23 year old female who presents with states for the last week she has noticed a contreras white discharge in her underwear and a foul odor. Patient states she's also had vaginal irritation and itching. Patient denies any pain. Patient states she has low mid abdominal pain that comes and goes over the last week. Patient refuses treatment for sexually transmitted diseases today. She states that she will wait 48 hours if it comes back positive she will come back to be treated. I have educated the patient on the importance of being treated for sexual transmitted diseases and she states that she understands and she will come back if she is positive. Abdomen soft and nontender. Cervix is pink and there are no lesions or irritation seen. Patient denies any fever or dysuria symptoms. Patient denies any nausea or vomiting. Wet prep shows bacterial vaginosis. Urine positive for Trichomonas. Urinalysis shows the start of a UTI. 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 (MELI WILLIAM APRN) Departure Departure Impression: Primary Impression: BV (bacterial vaginosis) Additional Impressions: Trichomonas infection UTI (urinary tract infection) Disposition: HOME, SELF-CARE Condition: STABLE Referrals: UNKNOWN PCP NAME (PCP) Patient Instructions: Bacterial Vaginosis, Trichomoniasis, Urinary Tract Infection Additional Instructions: You will be called in 48 hours only if you're chlamydia gonorrhea come back positive. Return promptly if they are positive for treatment. Follow-up with primary care doctor if needed. Take antibiotic with food and do not drink alcohol while on this antibiotic. Scripts Cephalexin (KEFLEX) 500 Mg Capsule 1 CAP PO BID, #14 CAP Prov: MELI WILLIAM APRN 01/07/19 Ondansetron (ONDANSETRON ODT) 4 Mg Tab.rapdis 1 TAB PO PRN Q6-8HRS, #16 TAB Prov: MELI WILLIAM APRN 01/07/19 Metronidazole (METRONIDAZOLE) 500 Mg Tablet 1 TAB PO BID, #14 TAB Prov: MELI WILLIAM APRN 01/07/19 Attending Signature I have participated in the care of this patient and I have reviewed and agree with all pertinent clinical information above including history, exam, and recommendations. (DOROTHY PRETTY MD) Problem Qualifiers Additional Impressions: UTI (urinary tract infection) Urinary tract infection type: site unspecified Hematuria presence: without hematuria Qualified Codes: N39.0 - Urinary tract infection, site not specified MELI WILLIAM APRN Jan 07, 2019 15:58 DOROTHY PRETTY MD Jan 07, 2019 17:59
[2019-01-07] MEDS ORDERED: METR-34 PO (16:23)
[2019-01-07] MEDS ORDERED: ONDA4TAB12 PO (16:23)
[2019-01-07 16:33] LABS: BILIRUBIN,URINE NEGATIVE (NEG); CLARITY,URINE CLEAR; COLOR,URINE YELLOW; NITRITE,URINE NEGATIVE (NEG); PROTEIN,URINE NEGATIVE (NEG-TRACE)
[2019-01-07 16:51] LABS: SQUAMOUS EPITHELIAL CELL,UR MANY /LPF
[2019-01-07 16:54] LABS: BACTERIA,URINE MANY /HPF (0-FEW); RBC,URINE 0 /HPF (0-2); TRICHOMONAS,URINE PRESENT
[2019-01-07] MEDS ORDERED: CEPH-264 PO (17:00)
[2019-01-10 18:10] LABS: GC PROBE Negative (Negative)
== END 2019-01-07 17:07 | disposition home or self-care (01) ==
LOC: ER 15:24
DX: N76.0 Acute vaginitis (principal); B96.89 Other specified bacterial agents as the cause of diseases classified elsewhere; A59.01 Trichomonal vulvovaginitis; N39.0 Urinary tract infection, site not specified
CPT/HCPCS: 81001; 81025; 87086; 87491; 87591; 99284; Q0111

== ENCOUNTER 2019-04-15 11:02 | Emergency (ER) | payer MEDICAID ==
[~2019-04-15] VITALS: Ht 157.5 cm; Wt 56.7 kg
[~2019-04-15 11:02] MED LIST changes: +CEPH-264 PO; +METR-34 PO; +ONDA4TAB12 PO
[2019-04-15 12:10] LABS: BILIRUBIN,URINE NEGATIVE (NEG); CLARITY,URINE CLEAR; COLOR,URINE YELLOW; NITRITE,URINE NEGATIVE (NEG); PROTEIN,URINE NEGATIVE (NEG-TRACE); UROBILINOGEN,URINE 0.2 mg/dL (0.2 mg/dL)
[2019-04-15 12:17] LABS: BARBITURATES NEG (NEG); BENZODIAZEPINES NEG (NEG); CANNABINOIDS POS (NEG); COCAINE NEG (NEG); METHADONE NEG (NEG); OPIATES NEG (NEG); PHENCYCLIDINE NEG (NEG)
[2019-04-15 12:20] LABS: AMPHETAMINE/METHAMPHETAMINE NEG (NEG)
[2019-04-15 12:21] LABS: SQUAMOUS EPITHELIAL CELL,UR MANY /LPF
[2019-04-15 12:22] LABS: BACTERIA,URINE MODERATE /HPF (0-FEW); RBC,URINE OCC /HPF (0-2)
[2019-04-15 12:29] LABS: BASO % 1 % (0-3); EOS # 0.1 x10^3/uL (0.0-0.7); EOS % 2 % (0-3); HEMATOCRIT 37.7 % (36.0-47.0); HEMOGLOBIN 12.8 g/dL (12.0-15.5); LYMPH # 1.2 x10^3/uL (1.0-4.8); LYMPH % 24 % (24-48); MEAN CORPUSCULAR HEMOGLOBIN 30 pg (25-35); MEAN CORPUSCULAR HGB CONC 34 g/dL (31-37); MEAN CORPUSCULAR VOLUME 88 fL (79-100); MONO # 0.3 x10^3/uL (0.0-1.1); MONO % 6 % (0-9); NEUT # 3.5 x10^3/uL (1.8-7.7); NEUT % 67 % (31-73); PLATELET COUNT 244 x10^3/uL (140-400); RED CELL DISTRIBUTION WIDTH 13.1 % (11.5-14.5); WHITE BLOOD COUNT 5.1 x10^3/uL (4.0-11.0)
[2019-04-15 12:45] LABS: CALCIUM 8.9 mg/dL (8.5-10.1); GFR 83.9
[2019-04-15 12:55] LABS: ALBUMIN 3.8 g/dL (3.4-5.0); ALBUMIN/GLOBULIN RATIO 1.1 (1.0-1.7); TOTAL BILIRUBIN 0.5 mg/dL (0.2-1.0); TOTAL PROTEIN 7.4 g/dL (6.4-8.2)
--- NOTE | 2019-04-15 13:25 | RAD ---
EXAM: Obstetrics sonogram. HISTORY: Pain. TECHNIQUE: Sonographic imaging of the pelvis was performed. COMPARISON: None. FINDINGS: The uterus measures 9.0 x 6.5 x 4.3 cm. There is a single intrauterine gestational sac and yolk sac. The mean gestational sac diameter is 9.7 mm, corresponding with a gestational age of 5 weeks and 5 days and due date of 12/11/2019. The gestational sac is normal in configuration. There is no subchorionic hematoma. No pole is seen. The ovaries are normal in size and demonstrate normal blood flow. There is a 1.9 cm right corpus luteum cyst. There is no pelvic free fluid. IMPRESSION: 1. Single intrauterine gestational sac with yolk sac and estimated gestational age of 5 weeks and 5 days. No pole is seen at this early gestational age. Short-term sonographic follow-up can be performed in approximately 2 weeks to confirm viability. 2. 1.9 cm right corpus luteum cyst. Electronically signed by: Inocencia Bennett MD (04/15/2019 1:22 PM) [place] [id number]
[2019-04-15 13:40] VITALS: BP 109/61
[2019-04-15] MEDS ORDERED: NITR100C62 PO (14:21)
--- NOTE | 2019-04-15 14:22 | PHYS DOC ---
Past Medical History Past Medical History: No Pertinent History, STD Additional Past Medical Histor: high risk for HPV, BENIGN CERVICAL DYSPLASIA Past Surgical History: No Surgical History Alcohol Use: Occasionally Drug Use: None Adult General Chief Complaint Chief Complaint: ABDOMINAL PAIN IN HPI HPI Patient is a 23 year old female who presents with female 4, 1 , 1 miscarriage presenting to the ED today complaining of abdominal pain in that has been going on intermittently for 3 days. Patient describes the pain as cramping and intermittent. Denies any exacerbating or relieving factors. She believes her last menstrual cycle was the end of January 2019, Review of Systems Review of Systems Constitutional: Denies fever or chills [] Eyes: Denies change in visual acuity, redness, or eye pain [] HENT: Denies nasal congestion or sore throat [] Respiratory: Denies cough or shortness of breath [] Cardiovascular: No additional information not addressed in HPI [] GI: Reports abdominal pain in , denies nausea, vomiting, bloody stools or diarrhea [] : Denies dysuria or hematuria [] Musculoskeletal: Denies back pain or joint pain [] Integument: Denies rash or skin lesions [] Neurologic: Denies headache, focal weakness or sensory changes [] All other systems were reviewed and found to be within normal limits, except as documented in this note. Allergies Allergies Allergies Coded Allergies Type Severity Reaction Last Updated Verified hydrocodone Allergy Intermediate rash, itching 04/15/19 Yes Physical Exam Physical Exam Constitutional: Well developed, well nourished, no acute distress, non-toxic appearance. [] HENT: Normocephalic, atraumatic, bilateral external ears normal, oropharynx moist, no oral exudates, nose normal. [] Eyes: PERRLA, EOMI, conjunctiva normal, no discharge. [] Neck: Normal range of motion, no tenderness, supple, no stridor. [] Cardiovascular:Heart rate regular rhythm, no murmur [] Lungs & Thorax: Bilateral breath sounds clear to auscultation [] Abdomen: Bowel sounds normal, soft, no tenderness, no masses, no pulsatile masses. [] Skin: Warm, dry, no erythema, no rash. [] Back: No tenderness, no CVA tenderness. [] Extremities: No tenderness, no cyanosis, no clubbing, ROM intact, no edema. [] Neurologic: Alert and oriented X 3, normal motor function, normal sensory function, no focal deficits noted. [] Psychologic: Affect normal, judgement normal, mood normal. [] Current Patient Data Vital Signs Vital Signs Date Time Temp Pulse Resp B/P (MAP) Pulse Ox O2 Delivery O2 Flow Rate FiO2 04/15/19 11:40 98.0 67 18 119/59 (79) 100 Room Air 98.0 Lab Values Laboratory Tests Test 04/15/19 11:44 04/15/19 11:47 04/15/19 12:20 Urine Collection Type Void Urine Color Yellow Urine Clarity Clear Urine pH 7.0 Urine Specific [place] 1.015 Urine Protein Negative mg/dL (NEG-TRACE) Urine Glucose (UA) Negative mg/dL (NEG) Urine Ketones (Stick) Negative mg/dL (NEG) Urine Blood Negative (NEG) Urine Nitrite Negative (NEG) Urine Bilirubin Negative (NEG) Urine Urobilinogen Dipstick 0.2 mg/dL (0.2 mg/dL) Urine Leukocyte Esterase Small (NEG) Urine RBC Occ /HPF (0-2) Urine WBC 11-20 /HPF (0-4) Urine Squamous Epithelial Cells Many /LPF Urine Bacteria Moderate /HPF (0-FEW) Urine Mucus Slight /LPF Urine Opiates Screen Neg (NEG) Urine Methadone Screen Neg (NEG) Urine Barbiturates Neg (NEG) Urine Phencyclidine Screen Neg (NEG) Urine Amphetamine/Methamphetamine Neg (NEG) Urine Benzodiazepines Screen Neg (NEG) Urine Cocaine Screen Neg (NEG) Urine Cannabinoids Screen Pos (NEG) Urine Ethyl Alcohol Neg (NEG) POC Urine HCG, Qualitative Hcg positive (Negative) White Blood Count 5.1 x10^3/uL (4.0-11.0) Red Blood Count 4.30 x10^6/uL (3.50-5.40) Hemoglobin 12.8 g/dL (12.0-15.5) Hematocrit 37.7 % (36.0-47.0) Mean Corpuscular Volume 88 fL (79-100) Mean Corpuscular Hemoglobin 30 pg (25-35) Mean Corpuscular Hemoglobin Concent 34 g/dL (31-37) Red Cell Distribution Width 13.1 % (11.5-14.5) Platelet Count 244 x10^3/uL (140-400) Neutrophils (%) (Auto) 67 % (31-73) Lymphocytes (%) (Auto) 24 % (24-48) Monocytes (%) (Auto) 6 % (0-9) Eosinophils (%) (Auto) 2 % (0-3) Basophils (%) (Auto) 1 % (0-3) Neutrophils # (Auto) 3.5 x10^3/uL (1.8-7.7) Lymphocytes # (Auto) 1.2 x10^3/uL (1.0-4.8) Monocytes # (Auto) 0.3 x10^3/uL (0.0-1.1) Eosinophils # (Auto) 0.1 x10^3/uL (0.0-0.7) Basophils # (Auto) 0.0 x10^3/uL (0.0-0.2) Maternal Serum HCG Beta Subunit 15907 mIU/mL (0-5) H Sodium Level 137 mmol/L (136-145) Potassium Level 4.0 mmol/L (3.5-5.1) Chloride Level 104 mmol/L (98-107) Carbon Dioxide Level 27 mmol/L (21-32) Anion Gap 6 (6-14) Blood Urea Nitrogen 11 mg/dL (7-20) Creatinine 1.0 mg/dL (0.6-1.0) Estimated GFR (Cockcroft-Gault) 83.9 BUN/Creatinine Ratio 11 (6-20) Glucose Level 100 mg/dL (70-99) H Calcium Level 8.9 mg/dL (8.5-10.1) Total Bilirubin 0.5 mg/dL (0.2-1.0) Aspartate Amino Transferase (AST) 14 U/L (15-37) L Alanine Aminotransferase (ALT) 15 U/L (14-59) Alkaline Phosphatase 91 U/L (46-116) Total Protein 7.4 g/dL (6.4-8.2) Albumin 3.8 g/dL (3.4-5.0) Albumin/Globulin Ratio 1.1 (1.0-1.7) Lipase 123 U/L (73-393) Ethyl Alcohol Level < 10 mg/dL (0-10) Laboratory Tests 04/15/19 12:20 Laboratory Tests 04/15/19 12:20 EKG EKG [] Radiology/Procedures Radiology/Procedures []PROCEDURE: OB <14 WKS W/TV EXAM: Obstetrics sonogram. HISTORY: Pain. TECHNIQUE: Sonographic imaging of the pelvis was performed. COMPARISON: None. FINDINGS: The uterus measures 9.0 x 6.5 x 4.3 cm. There is a single intrauterine gestational sac and yolk sac. The mean gestational sac diameter is 9.7 mm, corresponding with a gestational age of 5 weeks and 5 days and due date of 12/11/2019. The gestational sac is normal in configuration. There is no subchorionic hematoma. No pole is seen. The ovaries are normal in size and demonstrate normal blood flow. There is a 1.9 cm right corpus luteum cyst. There is no pelvic free fluid. IMPRESSION: 1. Single intrauterine gestational sac with yolk sac and estimated gestational age of 5 weeks and 5 days. No pole is seen at this early gestational age. Short-term sonographic follow-up can be performed in approximately 2 weeks to confirm viability. 2. 1.9 cm right corpus luteum cyst. Electronically signed by: Inocencia Bennett MD (04/15/2019 1:22 PM) [place] [id number] DICTATED and SIGNED BY: INOCENCIA BENNETT MD DATE: 04/15/19 1322 Course & Med Decision Making Course & Med Decision Making Pertinent Labs and Imaging studies reviewed. (See chart for details) This is a 23-year-old female patient presenting to the ED today with abdominal pain in that began 3 days ago. Positive urine hCG, beta-hCG 10,369. CBC, CMP-negative, urine analysis with infection discharged on Macrobid. OB ultrasound noted for single IUP 5 weeks 5 days.No pole is seen at this early gestational age. Short-term sonographic follow-up can be performed in approximately 2 weeks to confirm viability. D/c to home. f/u with OB next week Dragon Disclaimer Dragon Disclaimer This electronic medical record was generated, in whole or in part, using a voice recognition dictation system. Departure Departure Impression: Primary Impression: Abdominal pain in Additional Impression: UTI (urinary tract infection) Disposition: HOME, SELF-CARE Condition: STABLE Referrals: NO PCP (PCP) PARVEEN ARNOLD MD Follow-up with your [facility] in the course of next week Patient Instructions: Abdominal Pain During , Urinary Tract Infection Additional Instructions: You were seen in the Ed and noted to be 5 weeks 2 days . You have infection in your urine. Please complete your antibiotics and see your OBGYN as soon as possible Scripts Nitrofurantoin Monohyd/M-Cryst (MACROBID 100 MG CAPSULE) 100 Mg Capsule 1 CAP PO BID for 7 Days, #14 CAP 0 Refills Prov: MAURY ARAIZA APRN 04/15/19 Problem Qualifiers Primary Impression: Abdominal pain in Trimester: unspecified trimester Qualified Codes: O26.899 - Other specified related conditions, unspecified trimester; R10.9 - Unspecified abdominal pain Additional Impression: UTI (urinary tract infection) Urinary tract infection type: site unspecified Hematuria presence: without hematuria Qualified Codes: N39.0 - Urinary tract infection, site not specified MAURY ARAIZA APRN Apr 15, 2019 14:22
== END 2019-04-15 14:30 | disposition home or self-care (01) ==
LOC: ER 11:02
DX: O23.41 Unspecified infection of urinary tract in pregnancy, first trimester (principal); N83.11 Corpus luteum cyst of right ovary; Z3A.01 Less than 8 weeks gestation of pregnancy; Z88.5 Allergy status to narcotic agent
CPT/HCPCS: 36415; 76801; 76817; 80053; 80307; 81001; 81025; 83690; 84702; 85025; 87086; 99285; G0480

== ENCOUNTER 2019-10-20 15:22 | Emergency (ER) | payer MEDICAID ==
[~2019-10-20] VITALS: Ht 157.5 cm; Wt 52.9 kg
[~2019-10-20 15:22] MED LIST changes: -CETI10TA22 PO; +CETI10TA24 PO; +NITR100C62 PO
[2019-10-20 16:20] VITALS: BP 112/57
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
--- NOTE | 2019-10-20 17:28 | RAD ---
WRIST 3V RIGHT, HAND RIGHT 3V 10/20/2019 4:50 PM INDICATION: Pain, punched a wall COMPARISON: None available. TECHNIQUE: 3 views of the right and 3 views the right wrist are provided. FINDINGS/ IMPRESSION: Nondisplaced obliquely oriented fracture is noted involving the distal shaft of the fifth metacarpal without intra-articular extension. There is adjacent soft tissue swelling. Joint spaces are maintained. Electronically signed by: Jaja Walker MD (10/20/2019 5:25 PM) [id number]
[2019-10-20] MEDS ORDERED: IBUP-1007 PO (17:34)
[2019-10-20] MEDS ORDERED: TRAM50TA PO (17:34)
== END 2019-10-20 18:05 | disposition home or self-care (01) ==
LOC: ER 15:22
DX: S62.356A Nondisplaced fracture of shaft of fifth metacarpal bone, right hand, initial encounter for closed fracture (principal); Z88.5 Allergy status to narcotic agent; W22.01XA Walked into wall, initial encounter; Y93.89 Activity, other specified; Y92.89 Other specified places as the place of occurrence of the external cause; Y99.8 Other external cause status
CPT/HCPCS: 29125; 73110; 73130; 81025; 99284-25

== ENCOUNTER 2021-02-18 16:44 | Emergency (ER) | payer MEDICAID ==
[~2021-02-18 16:44] MED LIST changes: -CETI10TA24 PO; +CETI10TA74 PO; +ERYT1OIN3 EACHEYE; -ERYT1OIN6 EACHEYE; +IBUP-1007 PO; +TRAM50TA PO
[2021-02-19] MEDS ORDERED: AMOX875T PO (19:55)
== END 2021-02-18 17:03 | disposition left against medical advice (07) ==
LOC: ER 16:44
DX: H92.02 Otalgia, left ear (principal); Z53.21 Procedure and treatment not carried out due to patient leaving prior to being seen by health care provider

== ENCOUNTER 2021-02-19 17:43 | Emergency (ER) | payer MEDICAID ==
[~2021-02-19] VITALS: Ht 157.5 cm; Wt 59.0 kg
[2021-02-19] MEDS ORDERED: AMOX875T PO (19:55)
--- NOTE | 2021-02-19 19:55 | PHYS DOC ---
Past Medical History Past Medical History: No Pertinent History, STD Additional Past Medical Histor: high risk for HPV, BENIGN CERVICAL DYSPLASIA Past Surgical History: No Surgical History Smoking Status: Never Smoker Alcohol Use: Occasionally Drug Use: None General Adult EDM: Chief Complaint: EARACHE/EAR PAIN HPI: HPI: Patient is a 25-year-old female that presents today with left ear pain. Patient states that 3 days ago she started having left ear pain and is now moved to the left side of her throat as well she also reports nasal congestion and a dry cough. Patient states she had similar symptoms with bilateral ear pain and sore throat about a week ago to 2 weeks ago and she said the pain went away she assumed it was allergies, 3 days ago symptoms started similarly but today the left ear pain has gotten worse. Patient states she does do a lot of flying she feels this is contributed to her pain. She also has a crown missing from her lower left jaw and the gum area is reddened and she was also concerned if that could be contributing to this as well. Review of Systems: Review of Systems: Constitutional: chills. [] Eyes: Denies change in visual acuity. [] HENT: nasal congestion, left ear pain or sore throat. [] Respiratory: Denies cough or shortness of breath. [] Cardiovascular: Denies chest pain or edema. [] GI: Denies abdominal pain, nausea, vomiting, bloody stools or diarrhea. [] : Denies dysuria. [] Musculoskeletal: Denies back pain or joint pain. [] Integument: Denies rash. [] Neurologic: Denies headache, focal weakness or sensory changes. [] Endocrine: Denies polyuria or polydipsia. [] Lymphatic: Denies swollen glands. [] Psychiatric: Denies depression or anxiety. [] Heart Score: C/O Chest Pain: N/A Risk Factors: Risk Factors: DM, Current or recent (<one month) smoker, HTN, HLP, family history of CAD, obesity. Risk Scores: Score 0 - 3: 2.5% MACE over next 6 weeks - Discharge Home Score 4 - 6: 20.3% MACE over next 6 weeks - Admit for Clinical Observation Score 7 - 10: 72.7% MACE over next 6 weeks - Early Invasive Strategies Allergies: Allergies: Allergies Coded Allergies Type Severity Reaction Last Updated Verified hydrocodone Allergy Intermediate rash, itching 04/15/19 Yes Physical Exam: PE: Constitutional: Well developed, well nourished, no acute distress, non-toxic appearance. [] HENT: Normocephalic, atraumatic, bilateral external ears normal, left TM is bulging and reddened, right TM is normal. left lower crown missing, gum is red, no drainage noted. [] Eyes: PERRLA, EOMI, conjunctiva normal, no discharge. [] Neck: Normal range of motion, no tenderness, supple, no stridor. [] Cardiovascular:Heart rate regular rhythm, no murmur [] Lungs & Thorax: Bilateral breath sounds clear to auscultation [] Abdomen: Bowel sounds normal, soft, no tenderness, no masses, no pulsatile masses. [] Skin: Warm, dry, no erythema, no rash. [] Back: No tenderness, no CVA tenderness. [] Extremities: No tenderness, no cyanosis, no clubbing, ROM intact, no edema. [] Neurologic: Alert and oriented X 3, normal motor function, normal sensory function, no focal deficits noted. [] Psychologic: Affect normal, judgement normal, mood normal. [] Current Patient Data: Vital Signs: Vital Signs Date Time Temp Pulse Resp B/P (MAP) Pulse Ox O2 Delivery O2 Flow Rate FiO2 02/19/21 19:28 98.6 69 18 126/80 (95) 99 Room Air 98.6 EKG: EKG: [] Radiology/Procedures: Radiology/Procedures: [] Course & Med Decision Making: Course & Med Decision Making Pertinent Labs and Imaging studies reviewed. (See chart for details) Patient examined, will send home treat for otitis media have patient follow-up with her dentist for further follow-up on that left lower crown missing. [id number] decongestants and Tylenol and/or ibuprofen as labeled directed for pain Dragon Disclaimer: Bree Disclaimer: This electronic medical record was generated, in whole or in part, using a voice recognition dictation system. Departure Departure Impression: Primary Impression: Otitis media of left ear Qualified Codes: H66.002 - Acute suppurative otitis media without spontaneous rupture of ear drum, left ear Disposition: HOME / SELF CARE / HOMELESS Condition: STABLE Referrals: NO PCP (PCP) PARVEEN DENT MD Patient Instructions: Otitis Media, Adult Additional Instructions: Take antibiotics as directed and its entire course Take [id number] decongestant to help with drainage Tylenol and/or ibuprofen [id number] as needed for pain Follow-up with your primary care physician or one of the clinics or physicians you have been given information on for follow-up of your ears Scripts Amoxicillin (AMOXICILLIN) 875 Mg Tablet 1000 MG PO TID for otitis media for 10 Days, #35 TAB 0 Refills Prov: ADELINE RUFF APRN 02/19/21 ADELINE RUFF APRN Feb 19, 2021 19:55
[2021-02-19 20:03] VITALS: BP 113/83
[2021-02-19] MEDS ORDERED: IBUPROFEN 200 MG TABLET. PO ONE (20:30)
== END 2021-02-19 20:10 | disposition home or self-care (01) ==
LOC: ER 17:43
DX: H66.002 Acute suppurative otitis media without spontaneous rupture of ear drum, left ear (principal); Z88.5 Allergy status to narcotic agent
CPT/HCPCS: 99283

== ENCOUNTER 2021-05-15 19:56 | Emergency (ER) | payer MEDICAID ==
[~2021-05-15] VITALS: Ht 157.5 cm; Wt 62.9 kg
[~2021-05-15 19:56] MED LIST changes: +AMOX875T PO
[2021-05-15 20:10] VITALS: BP 96/54
[2021-05-15 20:35] LABS: BILIRUBIN,URINE NEGATIVE (NEG); CLARITY,URINE CLEAR; COLOR,URINE YELLOW; NITRITE,URINE NEGATIVE (NEG); PH,URINE 6.5 (<5.0-8.0); PROTEIN,URINE NEGATIVE (NEG-TRACE); UROBILINOGEN,URINE 0.2 mg/dL (0.2 mg/dL)
[2021-05-15 20:42] LABS: BACTERIA,URINE FEW /HPF (0-FEW); RBC,URINE 0 /HPF (0-2)
== END 2021-05-15 21:27 | disposition left against medical advice (07) ==
LOC: ER 19:56
DX: N89.8 Other specified noninflammatory disorders of vagina (principal); Z53.21 Procedure and treatment not carried out due to patient leaving prior to being seen by health care provider
CPT/HCPCS: 81001; 81025; 87086